=== PATIENT | female | born 1960 | race Caucasian/White ===

== ENCOUNTER → 2023-07-02 14:57 | Outpatient (BNVA) | payer SELFPAY | PROVIDERS: PCP Family Medicine; Visit Provider Physician Assistant Surgical ==

== ENCOUNTER 2023-08-13 | Outpatient (REF) | payer BC, SELFPAY ==
[2023-08-13 13:04] LABS: Glucose Random 95 mg/dL (60-115)
[2023-08-13 13:06] LABS: Estimated Average Glucose 108 mg/dL; Hemoglobin A1c % 5.4 % (<6.0)
== END 2023-08-13 00:01 | disposition home or self-care (01) ==
LOC: HO.LAB
PROVIDERS: Visit Provider Physician Assistant Surgical
DX: E66.01 Morbid (severe) obesity due to excess calories (principal); Z79.899 Other long term (current) drug therapy
CPT/HCPCS: 36415; 82947; 83036; 99453

== ENCOUNTER 2023-08-13 10:50 | Outpatient (AMB) | payer BC, SELFPAY ==
--- NOTE | 2023-08-13 13:05 | A.OFFVIS_ITS ---
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 Allergies No Known Allergies Allergy (Verified 08/13/23 13:18) Medication List - Last Reconciled 08/13/23 by GABRIEL Apodaca albuterol sulfate 90 mcg/actuation inhalation amlodipine 10 mg PO DAILY aripiprazole 15 mg PO DAILY atorvastatin 20 mg PO DAILY candesartan 4 mg PO DAILY duloxetine 120 mg PO DAILY [dupixent PO] ergocalciferol (vitamin D2) PO fluocinonide 0.05% appl topical ytojzbdbfdu-ilmsbqmiy-yojabapu 200-62.5-25 mcg (Trelegy Ellipta) 1 ea inhalation DAILY hydrochlorothiazide 25 mg PO DAILY hydrocortisone 2.5% appl topical ibuprofen mg PO imiquimod 5% topical levothyroxine 175 mcg PO DAILY methylphenidate HCl 20 mg PO TID mirabegron ER (Myrbetriq) 50 mg PO DAILY modafinil 100 mg PO DAILY modafinil 200 mg PO BID omeprazole 40 mg PO DAILY HPI HPI Comments History of Present Illness Details Patient is a pleasant 63-year-old morbidly obese female with a past medical history significant for hypertension presenting to the metabolic clinic. She is excited to attempt a structured weight loss program. She does ambulate with the use of a single-point cane and has generalized arthritis but is willing to try to improve her overall health. Review of Systems Const All systems reviewed & are unremarkable except as noted in HPI and below Physical Exam Vital Signs: Last Vital Signs Temp 97.7 F 08/13/23 13:06 Pulse 85 08/13/23 13:06 BP 141/66 H 08/13/23 13:06 Pulse Ox 95 08/13/23 13:06 Oxygen Delivery Method Room Air 08/13/23 13:06 BMI result Body Mass Index 51.8 Assessment & Plan Assessment & Plan (1) Morbid obesity: Code(s): E66.01 - Morbid (severe) obesity due to excess calories Plan: Patient is a pleasant 63-year-old female who presented to the office today to participate in the metabolic clinic. She did have a hemoglobin A1c which was 5.4. She does take 2 antihypertensive medications. Weight today was 316 lb with a BMI of 51.8. She went through the right BMI Hap and received a structured meal plan utilizing protein shakes, protein bars and food. We will use celebrate rebuild powdered protein and celebrate protein bars. She was additionally given a structured exercise program. She was given my cell phone number to text with any questions or concerns. Return to clinic 1 week. Orders: Orders Hemoglobin A1c Today E66.9 - Obesity, unspecified Glucose Random Today E66.9 - Obesity, unspecified Coding Level of Care Code [address]239 [facility] Intital setup, [facility] Diagnoses Morbid obesity E66.01
[2023-08-13 13:06] VITALS: BP 141/66; PULSE 85; TEMP 36.5; O2SAT 95; BMI 51.8
== END 2023-08-13 14:58 | disposition home or self-care (01) ==
LOC: HO.META 10:50
PROVIDERS: PCP Family Medicine; Visit Provider Physician Assistant Surgical
DX: E66.01 Morbid (severe) obesity due to excess calories (principal)

== ENCOUNTER → 2023-08-13 10:50 | Outpatient (BNVA) | payer BC, SELFPAY | PROVIDERS: PCP Family Medicine; Visit Provider Physician Assistant Surgical | DX: E66.9 Obesity, unspecified (principal) ==

== ENCOUNTER → 2023-08-20 12:39 | Outpatient (BNVA) | payer BC, SELFPAY | PROVIDERS: PCP Family Medicine; Visit Provider Physician Assistant Surgical ==

== ENCOUNTER 2023-08-27 14:33 | Outpatient (AMB) | payer BC, SELFPAY ==
--- NOTE | 2023-08-27 14:06 | A.OFFVIS_ITS ---
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 Allergies No Known Allergies Allergy (Verified 08/13/23 13:18) Medication List - Last Reconciled 08/27/23 by GABRIEL Apodaca albuterol sulfate 90 mcg/actuation inhalation amlodipine 10 mg PO DAILY aripiprazole 15 mg PO DAILY atorvastatin 20 mg PO DAILY bisacodyl (Dulcolax (bisacodyl)) 10 mg [place] DAILY PRN candesartan 4 mg PO DAILY duloxetine 120 mg PO DAILY [dupixent PO] ergocalciferol (vitamin D2) PO fluocinonide 0.05% appl topical nhtzwabkgrx-tdgyphdxr-mfsywmhy 200-62.5-25 mcg (Trelegy Ellipta) 1 ea inhalation DAILY hydrochlorothiazide 25 mg PO DAILY hydrocortisone 2.5% appl topical ibuprofen mg PO imiquimod 5% topical levothyroxine 175 mcg PO DAILY methylphenidate HCl 20 mg PO TID mirabegron ER (Myrbetriq) 50 mg PO DAILY modafinil 100 mg PO DAILY modafinil 200 mg PO BID omeprazole 40 mg PO DAILY sennosides (senna) 17.2 mg (2 x 8.6 mg) PO BEDTIME PRN 90 days HPI HPI Comments History of Present Illness Details 63 yo female [facility] Her weight today is 310.8 pounds with a BMI of 50.8. 5.2 pound weight loss since initiation. She states her BP 140s/70s The meal plan is going well but she is constipated. Last BM 6 days ago but no nausea or vomiting and is passing flatus Following the meal plan Exercise Stationary bike, 4 days per week, 10 minutes Assessment & Plan Assessment & Plan (1) Morbid obesity: Code(s): E66.01 - Morbid (severe) obesity due to excess calories Plan: She will continue with the current meal plan. We discussed increasing the duration on the stationary bike, utilizing 10 minutes twice daily on work days and 10 minutes 3 times a day on the weekends. Goal is to change the batteries in the spit dominant to track calories as well as to increase time spent on the stationary bike by 2 minutes per session per day. Return to clinic 1 week. Continue to send measurements weekly. (2) Constipation: Code(s): K59.00 - Constipation, unspecified Plan: add senna and prn dulcolax KS Medications: New bisacodyl (Dulcolax (bisacodyl)) 10 mg [place] DAILY PRN 12 ea 0RF constipation sennosides (senna) 17.2 mg (2 x 8.6 mg) PO BEDTIME 90 days PRN 90 tabs 0RF constipation Telehealth Telehealth Location of provider rendering services: practice address Location of patient: address on file Patient Identification confirmed using: Name, : Yes Telehealth method: voice only Patient verbally consented to treatment: Yes Patient verbally consented to billing insurance company: Yes Patient informed of any privacy concerns related to visit: Yes Minutes spent on Phone/Video with Pt.: 15 Coding Level of Care Code 93649 RPM each addnl 20 min Diagnoses Morbid obesity E66.01 Constipation K59.00
[2023-08-27 14:07] VITALS: BMI 50.8
== END 2023-08-27 14:33 | disposition home or self-care (01) ==
LOC: HO.META 14:33
PROVIDERS: PCP Family Medicine; Visit Provider Physician Assistant Surgical
DX: E66.01 Morbid (severe) obesity due to excess calories (principal); K59.00 Constipation, unspecified
CPT/HCPCS: 99499

== ENCOUNTER → 2023-08-27 14:33 | Outpatient (BNVA) | payer BC, SELFPAY | PROVIDERS: PCP Family Medicine; Visit Provider Physician Assistant Surgical ==